=== PATIENT | male | born 1955 | race Caucasian/White ===

== ENCOUNTER 2017-02-22 19:51 | Emergency (ER) | payer OTHER ==
[2017-02-22 20:54] LABS: VENOUS O2 SATURATION 83.8 % (60.0-80.0); VENOUS PARTIAL PRESSURE CO2 38.8 mmHg (38.0-50.0); VENOUS TOTAL CO2 26.4 MEQ/L (24.0-28.0)
[2017-02-22 20:57] LABS: BASO % 0.2 % (0.0-1.0); EOS % 0.1 % (0.0-3.0); IMMATURE GRANULOCYTE # 0.1 10^3/uL (0-0); IMMATURE GRANULOCYTE % 0.5 % (0-0); LYMPH # 1.9 10^3/uL (1.5-4.5); LYMPH % 12.1 % (24.0-44.0); MEAN CORPUSCULAR HEMOGLOBIN 31.2 pg (27.0-33.0); MEAN CORPUSCULAR HGB CONC 34.9 g/dl (32.0-36.5); MEAN CORPUSCULAR VOLUME 89.2 fl (80.0-96.0); MONO # 1.6 10^3/uL (0.0-0.8); MONO % 10.2 % (0.0-5.0); NEUTROPHILS # 12.2 10^3/uL (1.8-7.7); NEUTROPHILS % 76.9 % (36.0-66.0); PLATELET COUNT, AUTOMATED 242 10^3/uL (150-450); RED CELL DISTRIBUTION WIDTH 12.8 % (11.5-14.5); WHITE BLOOD COUNT 15.8 10^3/uL (4.0-10.0)
[2017-02-22 21:02] LABS: INR 0.97
[2017-02-22 21:05] LABS: ALBUMIN 3.1 GM/DL (3.2-5.2); ALBUMIN/GLOBULIN RATIO 0.91 (1.00-1.93); ALKALINE PHOSPHATASE 125 U/L (45-117); ALT/SGPT 50 U/L (12-78); ANION GAP 11 MEQ/L (8-16); AST/SGOT 50 U/L (7-37); BILIRUBIN,DIRECT 0.2 MG/DL (0.0-0.2); BILIRUBIN,TOTAL 0.5 MG/DL (0.2-1.0); BLOOD UREA NITROGEN 25 MG/DL (7-18); CARBON DIOXIDE LEVEL 26 MEQ/L (21-32); CHLORIDE LEVEL 101 MEQ/L (98-107); CREATININE FOR GFR 1.11 MG/DL (0.70-1.30); GLOMERULAR FILTRATION RATE > 60.0 (>49); GLUCOSE, FASTING 130 MG/DL (80-110); POTASSIUM SERUM 3.4 MEQ/L (3.5-5.1); SODIUM LEVEL 138 MEQ/L (136-145); TOTAL PROTEIN 6.5 GM/DL (6.4-8.2)
[2017-02-22] MEDS: NS 1,000 ML IV (21:08)
[2017-02-22] MEDS: LABETALOL HCL 100 MG/20 ML VIAL IV (21:09)
[2017-02-22] MEDS ORDERED: ISOVUE-370 76% 100ML VIAL (Q9967) As Ordered (21:23)
[2017-02-22] MEDS: LABETALOL 100 MG TAB PO (22:45)
[2017-02-22] MEDS: HEPARIN SOD (PORCINE) 5000 UNITS/ML VIAL IV (22:46)
[2017-02-22] MEDS: HEPARIN DRIP 25,000 UNITS in APPROPRIATE DILUENT 1 EA IV ×2 (22:58→23:04)
== END 2017-02-23 00:12 | disposition short-term general hospital (02) ==
LOC: M ED 02-23 00:12
DX: I21.4 Non-ST elevation (NSTEMI) myocardial infarction (principal); J90 Pleural effusion, not elsewhere classified; R00.0 Tachycardia, unspecified; I45.2 Bifascicular block; I51.9 Heart disease, unspecified; I10 Essential (primary) hypertension; Z95.5 Presence of coronary angioplasty implant and graft; F17.200 Nicotine dependence, unspecified, uncomplicated; Z82.49 Family history of ischemic heart disease and other diseases of the circulatory system; Z79.82 Long term (current) use of aspirin; Z88.8 Allergy status to other drugs, medicaments and biological substances
CPT/HCPCS: Q9967

== ENCOUNTER 2018-07-15 02:23 | Emergency (ER) | payer OTHER, SELFPAY ==
[~2018-07-15 02:23] MED LIST: ASPI81TA51 PO; IBUP80TA PO; MAPA500T17 PO; OXYC1TAB23 PO; [UNRECOGNIZED DRUG - OTHER] PO
[2018-07-15 02:43] LABS: BASO # 0.1 10^3/uL (0.0-0.2); BASO % 0.8 % (0.0-1.0); EOS # 0.8 10^3/uL (0.0-0.50); EOS % 6.1 % (0.0-3.0); HEMATOCRIT 41.6 % (42.0-52.0); HEMOGLOBIN 13.9 g/dl (13.5-17.5); LYMPH # 2.1 10^3/uL (1.5-4.5); LYMPH % 16.2 % (24.0-44.0); MEAN CORPUSCULAR HGB CONC 33.4 g/dl (32.0-36.5); MEAN CORPUSCULAR VOLUME 95.9 fl (80.0-96.0); MONO # 1.2 10^3/uL (0.0-0.8); MONO % 8.9 % (0.0-5.0); NEUTROPHILS # 8.8 10^3/uL (1.8-7.7); NEUTROPHILS % 67.6 % (36.0-66.0); PLATELET COUNT, AUTOMATED 233 10^3/uL (150-450); RED BLOOD COUNT 4.34 10^6/uL (4.30-6.10)
[2018-07-15] MEDS: IPRATROPIUM 0.5MG/ALBUTEROL 2.5MG INH SOL UD 3ML (DUONEB)(J7620) NEB PRN ×3 (02:43→03:47)
[2018-07-15] MEDS ORDERED: methylPREDNISolone INJ 125 MG/2 ML VIAL (J2930) IV ONE (02:45)
[2018-07-15 03:10] LABS: BLOOD UREA NITROGEN 37 MG/DL (7-18); CALCIUM LEVEL 8.3 MG/DL (8.8-10.2); CARBON DIOXIDE LEVEL 28 MEQ/L (21-32); CHLORIDE LEVEL 112 MEQ/L (98-107); CPK CREATINE PHOSPHOKINASE 80 U/L (39-308); CREATININE FOR GFR 1.42 MG/DL (0.70-1.30); GLOMERULAR FILTRATION RATE 53.3 (>49); GLUCOSE, FASTING 101 MG/DL (70-100); MB/CK RELATIVE INDEX 1.75 (< OR =4); NT-PRO BNP 203 PG/ML (<125); SODIUM LEVEL 145 MEQ/L (136-145); TROPONIN I < 0.02 NG/ML (< 0.10)
[2018-07-15 03:15] LABS: ABG BASE EXCESS -1.8 (-2.0-2.0); ABG HCO3 23.2 MEQ/L (22.0-26.0); ABG O2 SATURATION 99.2 % (95.0-99.0); ABG PARTIAL PRESSURE CO2 40.4 mmHg (35.0-45.0); ABG PARTIAL PRESSURE O2 159.8 mmHg (75.0-100.0); ABG TOTAL CO2 24.4 MEQ/L (23.0-31.0); ABG pH (ARTERIAL) 7.377 UNITS (7.350-7.450)
[2018-07-15 04:00] VITALS: BP 126/75
[2018-07-15 04:07] VITALS: O2SAT 92
[2018-07-15] MEDS ORDERED: ALBUTEROL 90 MCG/ACT 8GM HFA INHALER INH ONE ×2 (04:15)
[2018-07-15] MEDS ORDERED: PRED20TA PO ×2 (04:16→04:17)
--- NOTE | 2018-07-15 08:58 | REP ---
REASON: Cough and dyspnea. COMPARISON: 03/25/2016. The technique utilized in obtaining the radiograph has magnified the cardiac silhouette and accentuated the interstitial markings. The lung ru[place] are hyperexpanded. Abnormal patchy and curvilinear opacities seen on the prior exam with bilateral pleural effusions have all resolved. Stable chronic biapical pleuroparenchymal scarring is again noted. No acute patchy parenchymal opacities or pleural effusions have developed. The heart is not enlarged. The osseous structures are stable and intact. IMPRESSION: No evidence of acute cardiopulmonary disease. Electronically Signed by Gene Bajwa DO 07/15/2018 10:28 A
--- NOTE | 2018-07-15 17:53 | ECGEPIP ---
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
== END 2018-07-15 04:42 | disposition home or self-care (01) ==
LOC: M ED 02:23
DX: R06.00 Dyspnea, unspecified (principal); R00.0 Tachycardia, unspecified; I11.0 Hypertensive heart disease with heart failure; I50.9 Heart failure, unspecified; I25.10 Atherosclerotic heart disease of native coronary artery without angina pectoris; Z87.891 Personal history of nicotine dependence; Z88.4 Allergy status to anesthetic agent; Z79.82 Long term (current) use of aspirin
CPT/HCPCS: 36600; 71045; 80048; 82550; 82553; 82803; 83605; 83880; 84484; 85025; 87040; 93005; 93041; 94640; 96374; 99285; J2930

== ENCOUNTER 2020-06-11 00:10 | Observation (INO) | payer OTHER ==
[~2020-06-11] VITALS: Ht 175.3 cm; Wt 51.5 kg
[~2020-06-11 00:10] MED LIST changes: +PRED20TA PO
[2020-06-11] MEDS: COMBIVENT RESPIMAT 100-20MCG INHALER 4GM INH SCH ×3 (00:32→01:13)
[2020-06-11 00:51] LABS: BASO # 0.1 10^3/uL (0.0-0.2); BASO % 0.6 % (0.0-1.0); EOS # 0.5 10^3/uL (0.0-0.5); EOS % 3.1 % (0.0-3.0); HEMATOCRIT 41.6 % (42.0-52.0); HEMOGLOBIN 13.2 g/dl (13.5-17.5); LYMPH # 2.2 10^3/uL (1.5-5.0); LYMPH % 13.7 % (24.0-44.0); MEAN CORPUSCULAR HEMOGLOBIN 29.4 pg (27.0-33.0); MEAN CORPUSCULAR HGB CONC 31.7 g/dl (32.0-36.5); MEAN CORPUSCULAR VOLUME 92.7 fl (80.0-96.0); MONO # 1.4 10^3/uL (0.0-0.8); MONO % 8.8 % (2.0-8.0); NEUTROPHILS # 11.7 10^3/uL (1.5-8.5); NEUTROPHILS % 73.5 % (36.0-66.0); PLATELET COUNT, AUTOMATED 228 10^3/uL (150-450); RED BLOOD COUNT 4.49 10^6/uL (4.30-6.10); WHITE BLOOD COUNT 15.9 10^3/uL (4.0-10.0)
[2020-06-11 01:38] LABS: ALBUMIN 3.7 GM/DL (3.2-5.2); ALT/SGPT 17 U/L (12-78); BILIRUBIN,DIRECT < 0.1 MG/DL (0.0-0.2); BILIRUBIN,TOTAL 0.2 MG/DL (0.2-1.0); BLOOD UREA NITROGEN 46 MG/DL (7-18); CALCIUM LEVEL 9.3 MG/DL (8.8-10.2); CARBON DIOXIDE LEVEL 27 MEQ/L (21-32); CHLORIDE LEVEL 109 MEQ/L (98-107); CK-MB VALUE MASS 2.3 NG/ML (<3.6); CPK CREATINE PHOSPHOKINASE 138 U/L (39-308); CREATININE FOR GFR 1.48 MG/DL (0.70-1.30); GLOMERULAR FILTRATION RATE 50.5 (>49); GLUCOSE, FASTING 89 MG/DL (70-100); MB/CK RELATIVE INDEX 1.67 (< OR =4); NT-PRO BNP 530 PG/ML (<125); POTASSIUM SERUM 4.5 MEQ/L (3.5-5.1); SODIUM LEVEL 141 MEQ/L (136-145); TOTAL PROTEIN 7.4 GM/DL (6.4-8.2); TROPONIN I < 0.02 NG/ML (< 0.10)
--- NOTE | 2020-06-11 01:39 | REPVR ---
PROCEDURE INFORMATION: Exam: XR Chest Exam date and time: 06/11/2020 1:06 AM Age: 65 years old Clinical indication: Cough and dyspnea; Additional info: Dyspnea/cough TECHNIQUE: Imaging protocol: XR of the chest. Views: 1 view. COMPARISON: CR PORTABLE CHEST X-RAY 07/15/2018 2:44 AM FINDINGS: Lungs: Degree of lung inflation is increased. No evidence of pulmonary edema. No focal consolidation or parenchymal lung mass. Pleural spaces: No pleural effusion or pneumothorax. Heart/Mediastinum: Cardiac silhouette appears normal. No adenopathy or hilar mass. Bones/joints: Osseous structures show no concerning abnormality. IMPRESSION: Hyperinflated lungs suggesting possible COPD. No evidence of pneumonia, pulmonary edema or other concerning focal process Electronically signed by: Jared Starr On 06/11/2020 01:39:44 AM
[2020-06-11] MEDS ORDERED: ATOR1TAB21 PO (02:28)
[2020-06-11] MEDS ORDERED: D31000TA2 PO (02:28)
[2020-06-11] MEDS ORDERED: CLOP75TA2 PO (02:28)
[2020-06-11] MEDS ORDERED: STIO1AER INH (02:28)
[2020-06-11] MEDS ORDERED: METO1TAB33 PO (02:28)
[2020-06-11] MEDS ORDERED: ASPI-161 PO (02:28)
[2020-06-11] MEDS ORDERED: ALEN70TA82 PO (02:28)
[2020-06-11] MEDS ORDERED: FURO20TA2 PO (02:28)
[2020-06-11] MEDS ORDERED: MOM 30ML SUSPENSION UDC PO PRN (02:45)
[2020-06-11] MEDS ORDERED: MAALOX 30 ML SUSP *UDC PO PRN (02:45)
[2020-06-11] MEDS ORDERED: PROAAER10 INH (02:52)
[2020-06-11] MEDS ORDERED: SYNT75TA PO (02:53)
[2020-06-11] MEDS ORDERED: VALS1TAB67 PO (02:53)
[2020-06-11] MEDS ORDERED: BENZONATATE 100 MG CAP PO PRN (02:55)
[2020-06-11] MEDS ORDERED: NS 500 ML IV ONE (03:00)
[2020-06-11 03:08] LABS: VENOUS BASE EXCESS -0.6 (-2.0-2.0); VENOUS HCO3 27.8 MEQ/L (23.0-27.0); VENOUS O2 SATURATION 53.2 % (60.0-80.0); VENOUS PARTIAL PRESSURE CO2 61.3 mmHg (38.0-50.0); VENOUS PARTIAL PRESSURE O2 30.9 mmHg (30.0-50.0); VENOUS PH 7.274 UNITS (7.330-7.430); VENOUS STANDARD HCO3 22.9 MEQ/L; VENOUS TOTAL CO2 29.7 MEQ/L (24.0-28.0)
[2020-06-11] MEDS ORDERED: ALBUTEROL 90 MCG/ACT 8GM HFA INHALER INH PRN (03:20)
--- NOTE | 2020-06-11 03:24 | HPEPDOC ---
[facility] Medical History & Physical Date of Admission Jun 11, 2020 Date of Service: Jun 11, 2020 Other Provider Rocael Sandhu MD Attending Physician: ALEX OSEI MD History and Physical CHIEF COMPLAINT: [ SOB ] HISTORY OF PRESENT ILLNESS: [This is a 65 y/o male with a pmh of COPD, CHF, CAD s/p stent placement, renal stent placement, HTN who presents to the ED complaining of acute onset sob. Patient states that tonight before coming to the ED, he experienced a coughing fit in which he could not catch his breath at all and became dizzy and experienced chest tightness. Patient states that he received nebulizer treatments and steroid injections from EMS which helped his symptoms greatly. Patient states that he has been working in his yard the past two days digging out his septic system by hand. Patient believes this may be the cause of his cough and sob. Patient states that he is experiencing sputum with his cough but cannot describe it because he swallows it. Patient was initially worried he was having a CHF exacerbation but states he does not believe that is the cause of his symptoms at this time. Patient is present smoker. Patient denies fever, chills, chest pain, nausea, vomiting, syncope.] PAST MEDICAL HISTORY: 1. [See HPI PAST SURGICAL HISTORY: 1. [See HPI SOCIAL HISTORY: Marital status: []. Resides in: [Home with ] Tobacco use:[Current smoker] ETOH: [Denies] Illicit drug use: [Denies] ALLERGIES: Please see below. REVIEW OF SYSTEMS: CONSTITUTIONAL: [See HPI]. HEENT: [See HPI]. CARDIOVASCULAR: [See HPI]. RESPIRATORY: [See HPI]. GASTROINTESTINAL: [See HPI]. GENITOURINARY: [Denies dysuria]. SKIN: [Denies rash]. MUSCULOSKELETAL: [Denies acute joint pain]. NEUROLOGICAL: [Denies paresthesias]. ENDOCRINE: [Denies DM]. HEMATOLOGIC/LYMPHATIC: [Denies easy bruising]. HOME MEDICATIONS: Please see below. PHYSICAL EXAMINATION: VITAL SIGNS: See below GENERAL APPEARANCE: [This is a chronically ill appearing 65 year old male. He is seated in bed and frequently stops during exam to cough or catch his breath.]. HEENT: [No mass or lesion. EOMI. No scleral icterus. Nares patent. Oral mucosa dry without erythema]. CARDIOVASCULAR: [Tachy rate, normal rhythm. No murmurs, rubs, gallops]. LUNGS: [Diffuse wheezing]. ABDOMEN: [Soft, non-tender]. MUSCULOSKELETAL: [No joint deformity]. EXTREMITIES: [No peripheral edema appreciated. No clubbing, cyanosis. Pulses intact]. NEUROLOGICAL: [Speech clear. A+Ox3. No focal deficits]. PSYCHIATRIC: [Mood and affect appear appropriate]. LABORATORY DATA: See below. IMAGING: [Chest X-ray: FINDINGS: Lungs: Degree of lung inflation is increased. No evidence of pulmonary edema. No focal consolidation or parenchymal lung mass. Pleural spaces: No pleural effusion or pneumothorax. Heart/Mediastinum: Cardiac silhouette appears normal. No adenopathy or hilar mass. Bones/joints: Osseous structures show no concerning abnormality. IMPRESSION: Hyperinflated lungs suggesting possible COPD. No evidence of pneumonia, pulmonary edema or other concerning focal process ] MICROBIOLOGY: Please see below. ASSESSMENT: [This is a 65 year old male with a history of COPD, CHF, CAD and HTN who complains of increased sob and cough x2 days. 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 Patient has responded well this far to breathing treatments and steroids. Patient worried he was having chf exacerbation initially but not sta kam he does not believe that is the problem right now. Chest x-ray performed in the ED essentially negative for acute processes.]. . PLAN: 1. [Acute COPD Exacerbation - Likely onset by sudden increase of physical labor beyond what patient should be doing - Patient responded well to nebulizer and steroids given by ems - Will begin duonebs treatments as needed, oxygen via nasal canula titrated to >90% saturation, prednisone, tessalon perles - At this time, i do need feel abx are indicated as patient's clinical presentation does not indicate infection in my opinion - Will give small amount of IVF as patient appears dry on exam - continue at home levalbuterol - Will admit to med surg tele under observation 2. Leukocytosis - Likely inflammatory. Patient has negative chest x-ray, no fever, chills, gross change in sputum as far as he can tell. States he does not feel ill. Suspicion of infection is low at this point. 3. Tachycardia - Likely related to periods of impaired breathing due to prolonged coughing fits. heart rate seems to slow as patient sits and catches his breath. - Will monitor on tele overnight 4. CHF - BNP slightly elevated in ED at just over 500, however patient does not appear fluid overloaded, but rather dry - Will monitor bnp, clinical presentation - Continue valsartan, metoprolol, lasix 5. Nicotine use - patch ordered 6. CAD - continue plavix, asa 7. HTN - continue valsartan, metoprolol, lasix, as stated 8. DVT prophylaxis - heparin ordered]. Vital Signs Vital Signs Date Time Temp Pulse Resp B/P (MAP) Pulse Ox O2 Delivery O2 Flow Rate FiO2 06/11/20 00:42 Nasal Cannula 06/11/20 00:42 97.6 95 22 95 0.5 06/11/20 00:40 141/98 (112) Laboratory Data Labs 24H Laboratory Tests 2 06/11/20 00:37: Immature Granulocyte % (Auto) 0.3, Neutrophils (%) (Auto) 73.5H, Lymphocytes (%) (Auto) 13.7L, Monocytes (%) (Auto) 8.8H, Eosinophils (%) (Auto) 3.1H, Basophils (%) (Auto) 0.6, Neutrophils # (Auto) 11.7H, Lymphocytes # (Auto) 2.2, Monocytes # (Auto) 1.4H, Eosinophils # (Auto) 0.5, Basophils # (Auto) 0.1, Nucleated Red Blood Cells % (auto) 0.0, Blood Gas Bicarbonate Standard 22.9, Venous Blood pH 7.274L, Venous Blood Partial Pressure CO2 61.3H, Venous Blood Partial Pressure O2 30.9, Venous Blood Total Carbon Dioxide 29.7H, Venous Blood HCO3 27.8H, Venous Blood Oxygen Saturation 53.2L, Venous Blood Base Excess -0.6, Anion Gap 5L, Glomerular Filtration Rate 50.5, Lactic Acid Level 0.4, Calcium Level 9.3, Total Bilirubin 0.2, Direct Bilirubin < 0.1, Aspartate Amino Transf (AST/SGOT) 19, Alanine Aminotransferase (ALT/SGPT) 17, Alkaline Phosphatase 82, Total Creatine Kinase 138, Creatine Kinase MB 2.3, Creatine Kinase MB Relative Index 1.67, Troponin I < 0.02, FQ-Qwh-M-Type Natriuretic Peptide 530H, Total Protein 7.4, Albumin 3.7, Albumin/Globulin Ratio 1.0 06/11/20 00:43: POC pH (Misc Panel) 7.374, POC Base Excess (Misc Panel) -1.0, POC Saturated Percent O2 (Misc) 93L, POC pO2 (Misc Panel) 70.0L, POC pCO2 (Misc Panel) 40.9, POC HCO3 (Misc Panel) 23.9, POC Total CO2 (Misc Panel) 25.0 CBC/BMP Laboratory Tests 06/11/20 00:37 Microbiology Microbiology 06/11/20 Respiratory Virus Panel (PCR) ([facility]) - Final, Complete Home Medications Scheduled Alendronate Sodium (Alendronate Sodium) 70 Mg Tablet, 70 MG PO QWEEK SUNDAYS Aspirin (Aspirin EC) 81 Mg Tablet.dr, 81 MG PO DAILY Atorvastatin Calcium (Atorvastatin Calcium) 20 Mg Tablet, 10 MG PO DAILY Cholecalciferol (Vitamin D3) (Vitamin D3) 1,000 Unit Tablet, 1,000 UNITS PO DAILY Clopidogrel Bisulfate (Clopidogrel) 75 Mg Tablet, 75 MG PO DAILY Furosemide (Furosemide) 20 Mg Tablet, 20 MG PO DAILY Levothyroxine Sodium (Synthroid) 75 Mcg Tablet, 75 MCG PO DAILY Metoprolol Succinate (Metoprolol Succinate) 100 Mg Tab.er.24h, 50 MG PO DAILY Prednisone (Prednisone) 10 Mg Tablet, 10 MG PO TAPER Take 4 tabs daily x 3 days, then 3 tabs daily x 3 days, then 2 tabs daily x 3 days, then 1 tab daily x 3 days and stop Tiotropium Br/Olodaterol HCl (Stiolto Respimat Inhal [place]) 4 Gm Mist.inhal, 2 PUFFS INH DAILY Valsartan (Valsartan) 160 Mg Tablet, 160 MG PO DAILY Scheduled PRN Albuterol Sulfate (Proair Hfa) 8.5 Gm Hfa.aer.ad, 2 PUFF INH Q4H PRN for SHORTNESS OF BREATH Benzonatate (Benzonatate) 100 Mg Capsule, 100 MG PO TID PRN for COUGH Allergies Coded Allergies: procaine (Verified Allergy, Mild, 07/15/18) A-FIB/CHADSVASC A-FIB History Current/History of A-Fib/PAF?: No Attending Note Attending Note Time of service 230am Mr. 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 He will be admitted primarily for management of acute COPD. Rest per ANI Juarez's H&P SHERLEY JUAREZ Jun 11, 2020 03:24 ALEX OSEI MD Jun 11, 2020 03:53
[2020-06-11] MEDS ORDERED: methylPREDNISolone 125MG 2ML VIAL IV ONE (03:50)
[2020-06-11] MEDS ORDERED: LEVALBUTEROL 1.25 MG/0.5 ML CONCENTRATE NEB INH PRN (03:50)
[2020-06-11 04:20] VITALS: BP 125/84
[2020-06-11] MEDS: ACETAMINOPHEN TAB 650MG DOSE (2X325MG) PO PRN (04:37)
[2020-06-11] MEDS ORDERED: guaiFENesin 200 MG TAB PO PRN (04:50)
[2020-06-11 05:04] LABS: HEMATOCRIT 40.5 % (42.0-52.0); HEMOGLOBIN 13.2 g/dl (13.5-17.5); MEAN CORPUSCULAR HEMOGLOBIN 30.3 pg (27.0-33.0); MEAN CORPUSCULAR HGB CONC 32.6 g/dl (32.0-36.5); MEAN CORPUSCULAR VOLUME 93.1 fl (80.0-96.0); PLATELET COUNT, AUTOMATED 245 10^3/uL (150-450); RED BLOOD COUNT 4.35 10^6/uL (4.30-6.10); WHITE BLOOD COUNT 16.3 10^3/uL (4.0-10.0)
[2020-06-11] MEDS: LEVOTHYROXINE 75MCG TABLET (0.075MG) PO SCH (05:31)
[2020-06-11 05:35] LABS: CALCIUM LEVEL 8.9 MG/DL (8.8-10.2); CREATININE FOR GFR 1.43 MG/DL (0.70-1.30); GLOMERULAR FILTRATION RATE 52.5 (>49); MAGNESIUM LEVEL 2.2 MG/DL (1.8-2.4); POTASSIUM SERUM 4.8 MEQ/L (3.5-5.1)
[2020-06-11] MEDS ORDERED: HEPARIN SOD (PORCINE) 5000UNITS/ML 1ML VIAL/SYRINGE SQ SCH (06:00)
[2020-06-11] MEDS: IPRATROPIUM 0.5MG/ALBUTEROL 2.5MG INH SOL UD 3ML (DUONEB) NEB SCH ×3 (07:21→19:36)
--- NOTE | 2020-06-11 08:09 | ECGEPIP ---
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
[2020-06-11] MEDS: ENOXAPARIN 40MG/0.4ML SYRINGE (J1650 PER 10MG) SC SCH ×2 (09:00→09:15)
[2020-06-11] MEDS ORDERED: ADVAIR HFA 115/21MCG INHALER INH SCH (09:00)
[2020-06-11] MEDS: NICOTINE 21MG/24HR 1 EA TRANSDERMAL TD SCH (09:15)
[2020-06-11] MEDS: ASPIRIN 81MG ENTERIC TABLET PO SCH (09:16)
[2020-06-11] MEDS: VITAMIN D 1,000 INTERNATIONAL UNITS TABLET PO SCH (09:16)
[2020-06-11] MEDS: CLOPIDOGREL 75 MG TAB PO SCH (09:16)
[2020-06-11] MEDS: DOCUSATE SODIUM 100MG CAPSULE PO SCH ×2 (09:16→21:00)
[2020-06-11] MEDS: predniSONE 20 MG TAB PO SCH (09:16)
[2020-06-11] MEDS: FUROSEMIDE 20 MG TAB PO SCH (09:16)
[2020-06-11] MEDS: PANTOPRAZOLE 40MG TAB (PROTONIX) PO SCH (09:16)
[2020-06-11] MEDS: ATORVASTATIN 10 MG TAB PO SCH (09:16)
[2020-06-11 09:17] VITALS: BP 109/82
[2020-06-11 12:58] VITALS: BP 118/83
[2020-06-11 14:00] VITALS: BP 120/81
[2020-06-11] MEDS: METOPROLOL SUCC (TopROL XL) 100MG *XL* TAB PO SCH (14:32)
[2020-06-11] MEDS: VALSARTAN 80 MG TAB (DIOVAN) PO SCH (14:43)
[2020-06-11 22:00] VITALS: BP 126/79
[2020-06-12] MEDS: IPRATROPIUM 0.5MG/ALBUTEROL 2.5MG INH SOL UD 3ML (DUONEB) NEB SCH ×3 (01:21→13:34)
[2020-06-12] MEDS: ACETAMINOPHEN TAB 650MG DOSE (2X325MG) PO PRN (05:07)
[2020-06-12 06:00] VITALS: BP 111/60
[2020-06-12] MEDS: LEVOTHYROXINE 75MCG TABLET (0.075MG) PO SCH (06:04)
[2020-06-12 06:22] LABS: HEMATOCRIT 35.6 % (42.0-52.0); HEMOGLOBIN 11.7 g/dl (13.5-17.5); MEAN CORPUSCULAR HEMOGLOBIN 30.1 pg (27.0-33.0); MEAN CORPUSCULAR HGB CONC 32.9 g/dl (32.0-36.5); MEAN CORPUSCULAR VOLUME 91.5 fl (80.0-96.0); PLATELET COUNT, AUTOMATED 217 10^3/uL (150-450); RED BLOOD COUNT 3.89 10^6/uL (4.30-6.10); WHITE BLOOD COUNT 20.4 10^3/uL (4.0-10.0)
[2020-06-12 06:53] LABS: BLOOD UREA NITROGEN 45 MG/DL (7-18); CALCIUM LEVEL 8.7 MG/DL (8.8-10.2); CARBON DIOXIDE LEVEL 23 MEQ/L (21-32); CHLORIDE LEVEL 110 MEQ/L (98-107); GLOMERULAR FILTRATION RATE > 60.0 (>49); GLUCOSE, FASTING 96 MG/DL (70-100); MAGNESIUM LEVEL 2.2 MG/DL (1.8-2.4); SODIUM LEVEL 141 MEQ/L (136-145)
[2020-06-12 07:42] LABS: NT-PRO BNP 753 PG/ML (<125)
[2020-06-12] MEDS: NICOTINE 21MG/24HR 1 EA TRANSDERMAL TD SCH (09:12)
[2020-06-12 09:14] VITALS: BP 110/60
[2020-06-12] MEDS: VITAMIN D 1,000 INTERNATIONAL UNITS TABLET PO SCH (09:14)
[2020-06-12] MEDS: ASPIRIN 81MG ENTERIC TABLET PO SCH (09:14)
[2020-06-12] MEDS: VALSARTAN 80 MG TAB (DIOVAN) PO SCH (09:14)
[2020-06-12] MEDS: METOPROLOL SUCC (TopROL XL) 100MG *XL* TAB PO SCH (09:14)
[2020-06-12] MEDS: predniSONE 20 MG TAB PO SCH (09:15)
[2020-06-12] MEDS: PANTOPRAZOLE 40MG TAB (PROTONIX) PO SCH (09:15)
[2020-06-12] MEDS: CLOPIDOGREL 75 MG TAB PO SCH (09:15)
[2020-06-12] MEDS: DOCUSATE SODIUM 100MG CAPSULE PO SCH (09:15)
[2020-06-12] MEDS: ATORVASTATIN 10 MG TAB PO SCH (09:15)
[2020-06-12] MEDS: FUROSEMIDE 20 MG TAB PO SCH (09:17)
[2020-06-12] MEDS ORDERED: PILL CUTTER 1 EACH XX PRN (09:30)
[2020-06-12 09:35] VITALS: BP 110/61
--- NOTE | 2020-06-12 12:01 | DS.PDOC ---
Discharge Summary General Date of Admission Jun 11, 2020 at 00:11 Date of Discharge 06/12/20 Discharge Summary PROCEDURES PERFORMED DURING STAY: [None]. ADMITTING DIAGNOSES: Acute COPD exacerbation Leukocytosis Tachycardia CHF Nicotine use Hx of CAD HTN DISCHARGE DIAGNOSES: Acute COPD exacerbation Leukocytosis Tachycaardia CHF Nicotine use Hx of CAD HTN COMPLICATIONS/CHIEF COMPLAINT: CHF. HISTORY OF PRESENT ILLNESS: his is a 65 y/o white male with a pmh of COPD, CHF, CAD s/p stent placement, renal stent placement, HTN who presents to the ED complaining of acute onset sob. Patient states that tonight before coming to the ED, he experienced a coughing fit in which he could not catch his breath at all and became dizzy and experienced chest tightness. Patient states that he received nebulizer treatments and steroid injections from EMS which helped his symptoms greatly. Patient states that he has been working in his yard the past two days digging out his septic system by hand. Patient believes this may be the cause of his cough and sob. Patient states that he is experiencing sputum with his cough but cannot describe it because he swallows it. Patient was initially worried he was having a CHF exacerbation but states he does not believe that is the cause of his symptoms at this time. Patient is present smoker. Patient denies fever, chills, chest pain, nausea, vomiting, syncope. HOSPITAL COURSE: 1. Acute COPD Exacerbation - Likely onset by sudden increase of physical labor - Patient responded well to nebulizer and steroids given by EMS - recieved IV solumedrol in ER, followed by PO prednisone - patient is afebrile, and cough has improved, without sputum - leukocytosis of 20.4, is likely attributed to steroid administration - at this time, antibiotics are not indicated - will DC home with a prednisone taper, inhaelrs. CHF - BNP slightly elevated - clinically does not appear volume overloaded - per patient, had an echo performed 2 weeks ago at the [facility], reports no new con cerning findings - will request records for echo report - continue metorpolol, furosemide, valsartan - follow up with cardiology at [facility] system Nicotine use - patch ordered CAD - continue plavix, asa HTN - continue valsartan, metoprolol, lasix DISCHARGE MEDICATIONS: Please see below. ALLERGIES: Please see below. PHYSICAL EXAMINATION ON DISCHARGE: VITAL SIGNS: please see below General: NAD, comfortable HEENT: PERRLA, EOMI, sclerae clear Neck: supple, normal ROM, no JVD Respiratory: lungs CTAB, no wheeze, no rales, no crackles. fair air entry bilaterally CVS: RRR, normal S1, S2, no murmurs Abdo: soft, no masses, no hepatosplenomegaly, BS+, no rebound tenderness Extremities: no edema, pulses 2+ MSK: no joint deformities, normal ROM Neuro: no focal neuro deficits, moving all 4 extremities, CN2-12 intact. Strength 5/5 in all 4 extremities. No nystagmus. Psych: calm, cooperative, AAO x 3 LABORATORY DATA: Please see below. IMAGING: CXR (06/11/20): IMPRESSION: Hyperinflated lungs suggesting possible COPD. No evidence of pneumonia, pulmonary edema or other concerning focal process PROGNOSIS: good ACTIVITY: [As tolerated]. DIET: 2g diet DISCHARGE PLAN: DC home. To complete prednisone taper. C/w inhalers. Continue follow up with pulmnology and cardiology at the [place]. DISPOSITION: . DISCHARGE INSTRUCTIONS: . Please follow-up with your primary care doctor within 3-5 days . 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 Please taking medications as prescribed. . If you develop bleeding, chest pain, shortness of breath, seizures, nausea, fevers, or otherwise worsening of your symptoms, please call 911 or return to the nearest emergency room DISCHARGE CONDITION: Stable TIME SPENT ON DISCHARGE: 35 minutes Vital Signs/I&Os Vital Signs Date Time Temp Pulse Resp B/P (MAP) Pulse Ox O2 Delivery O2 Flow Rate FiO2 06/12/20 09:35 97.8 95 18 110/61 (77) 93 Room Air 06/11/20 00:42 0.5 I&O- Last 24 Hours up to 6 AM 06/12/20 06:00 Intake Total 1720 ml Output Total 1000 ml Balance 720 ml Laboratory Data Labs 24H Laboratory Tests 2 06/12/20 06:09: Nucleated Red Blood Cells % (auto) 0.0, Anion Gap 8, Glomerular Filtration Rate > 60.0, Calcium Level 8.7L, Magnesium Level 2.2, HR-Lng-P-Type Natriuretic Peptide 753H CBC/BMP Laboratory Tests 06/12/20 06:09 Microbiology Microbiology 06/11/20 Blood Culture - Preliminary, Resulted No growth after 24 hours . All specim... 06/11/20 Respiratory Virus Panel (PCR) ([facility]) - Final, Complete Discharge Medications Scheduled Alendronate Sodium (Alendronate Sodium) 70 Mg Tablet, 70 MG PO QWEEK, (Reported) SUNDAYS Aspirin (Aspirin EC) 81 Mg Tablet.dr, 81 MG PO DAILY, (Reported) Atorvastatin Calcium (Atorvastatin Calcium) 20 Mg Tablet, 10 MG PO DAILY, (Reported) Cholecalciferol (Vitamin D3) (Vitamin D3) 1,000 Unit Tablet, 1,000 UNITS PO DAILY, (Reported) Clopidogrel Bisulfate (Clopidogrel) 75 Mg Tablet, 75 MG PO DAILY, (Reported) Furosemide (Furosemide) 20 Mg Tablet, 20 MG PO DAILY, (Reported) Levothyroxine Sodium (Synthroid) 75 Mcg Tablet, 75 MCG PO DAILY, (Reported) Metoprolol Succinate (Metoprolol Succinate) 100 Mg Tab.er.24h, 50 MG PO DAILY, (Reported) Tiotropium Br/Olodaterol HCl (Stiolto Respimat Inhal [place]) 4 Gm Mist.inhal, 2 PUFFS INH DAILY, (Reported) Valsartan (Valsartan) 160 Mg Tablet, 160 MG PO DAILY, (Reported) Scheduled PRN Albuterol Sulfate (Proair Hfa) 8.5 Gm Hfa.aer.ad, 2 PUFF INH Q4H PRN for SHORTNESS OF BREATH, (Reported) Allergies Coded Allergies: procaine (Verified Allergy, Mild, 07/15/18) SIMON STONER MD Jun 12, 2020 12:01
[2020-06-12] MEDS ORDERED: ASPI-161 PO (12:08)
[2020-06-12] MEDS ORDERED: PROAAER10 INH (12:08)
[2020-06-12] MEDS ORDERED: BENZ-18 PO (12:08)
[2020-06-12] MEDS ORDERED: STIO1AER INH (12:08)
[2020-06-12] MEDS ORDERED: METO1TAB33 PO (12:08)
[2020-06-12] MEDS ORDERED: SYNT75TA PO (12:08)
[2020-06-12] MEDS ORDERED: CLOP75TA2 PO (12:08)
[2020-06-12] MEDS ORDERED: PRED10TA2 PO (12:08)
[2020-06-12] MEDS ORDERED: VALS1TAB67 PO (12:08)
[2020-06-12 14:00] VITALS: BP 112/62
[2020-06-13] MEDS ORDERED: METOPROLOL SUCC (TopROL XL) 50MG **XL** TAB PO SCH (09:00)
== END 2020-06-12 14:07 | disposition home or self-care (01) ==
LOC: M ED 00:10 → M ED INP 00:11 → ENRESERV 03:15 → M MSPAV 04:19
PROVIDERS: ADMIT Internal Medicine; ATTEND Family Medicine
DX: J44.1 Chronic obstructive pulmonary disease with (acute) exacerbation (principal); D72.829 Elevated white blood cell count, unspecified; R00.0 Tachycardia, unspecified; I50.9 Heart failure, unspecified; F17.218 Nicotine dependence, cigarettes, with other nicotine-induced disorders; I10 Essential (primary) hypertension; I25.10 Atherosclerotic heart disease of native coronary artery without angina pectoris; Z98.61 Coronary angioplasty status; Z79.82 Long term (current) use of aspirin; Z79.899 Other long term (current) drug therapy; Z88.8 Allergy status to other drugs, medicaments and biological substances
CPT/HCPCS: 36415; 36600; 71045; 80048; 80076; 82550; 82553; 82803; 83605; 83735; 83880; 84484; 85025; 85027; 87040; 87798; 93005; 93041; 94640; 96361; 96374; 96375; 99285; G0378; J2930

== ENCOUNTER 2020-07-19 23:12 | Emergency (ER) | payer OTHER ==
[~2020-07-19] VITALS: Ht 175.3 cm; Wt 51.4 kg
[~2020-07-19 23:12] MED LIST changes: +ALEN70TA82 PO; +ASPI-161 PO; +ATOR1TAB21 PO; +BENZ-18 PO; +CLOP75TA2 PO; +D31000TA2 PO; +FURO20TA2 PO; +METO1TAB33 PO; +PRED10TA2 PO; +PROAAER10 INH; +STIO1AER INH; +SYNT75TA PO; +VALS1TAB67 PO
--- NOTE | 2020-07-20 00:42 | REPVR ---
PROCEDURE INFORMATION: Exam: XR Chest Exam date and time: 07/19/2020 12:14 AM Age: 65 years old Clinical indication: Other: Dyspnea/cough TECHNIQUE: Imaging protocol: XR of the chest. Views: 1 view. COMPARISON: CR PORTABLE CHEST X-RAY 06/11/2020 12:55 AM FINDINGS: Lungs: There is interstitial density at the left lung base similar to 06/11/2020 but not seen on older examinations. This may be interstitial infiltrate or interstitial scarring. Pleural spaces: There is no evidence of pneumothorax or pleural effusion. Heart/Mediastinum: The heart is elongated and there is no evidence of enlargement. Bones/joints: Old healed right clavicular fracture IMPRESSION: Interstitial density at the left lung base which may be mild interstitial infiltrate or scarring. Electronically signed by: Jimbo Villarreal On 07/20/2020 00:41:46 AM
[2020-07-20 00:49] LABS: BASO # 0.1 10^3/uL (0.0-0.2); BASO % 0.5 % (0.0-1.0); EOS # 0.4 10^3/uL (0.0-0.5); EOS % 2.9 % (0.0-3.0); HEMATOCRIT 37.7 % (42.0-52.0); HEMOGLOBIN 12.3 g/dl (13.5-17.5); LYMPH # 2.2 10^3/uL (1.5-5.0); LYMPH % 15.2 % (24.0-44.0); MEAN CORPUSCULAR HEMOGLOBIN 30.7 pg (27.0-33.0); MEAN CORPUSCULAR HGB CONC 32.6 g/dl (32.0-36.5); MONO # 1.4 10^3/uL (0.0-0.8); MONO % 9.8 % (2.0-8.0); NEUTROPHILS # 10.2 10^3/uL (1.5-8.5); NEUTROPHILS % 71.2 % (36.0-66.0); PLATELET COUNT, AUTOMATED 235 10^3/uL (150-450); RED BLOOD COUNT 4.01 10^6/uL (4.30-6.10); WHITE BLOOD COUNT 14.3 10^3/uL (4.0-10.0)
[2020-07-20 01:15] LABS: ALBUMIN 3.3 GM/DL (3.2-5.2); ALT/SGPT 15 U/L (12-78); BILIRUBIN,DIRECT < 0.1 MG/DL (0.0-0.2); BILIRUBIN,TOTAL 0.3 MG/DL (0.2-1.0); BLOOD UREA NITROGEN 45 MG/DL (7-18); CALCIUM LEVEL 8.6 MG/DL (8.8-10.2); CARBON DIOXIDE LEVEL 26 MEQ/L (21-32); CHLORIDE LEVEL 115 MEQ/L (98-107); CK-MB VALUE MASS < 1.0 NG/ML (<3.6); CPK CREATINE PHOSPHOKINASE 65 U/L (39-308); CPK CREATINE PHOSPHOKINASE 66 U/L (39-308); CREATININE FOR GFR 1.34 MG/DL (0.70-1.30); GLOMERULAR FILTRATION RATE 56.6 (>49); GLUCOSE, FASTING 93 MG/DL (70-100); MB/CK RELATIVE INDEX 1.52 (< OR =4); MB/CK RELATIVE INDEX 1.54 (< OR =4); NT-PRO BNP 337 PG/ML (<125); POTASSIUM SERUM 4.9 MEQ/L (3.5-5.1); SODIUM LEVEL 143 MEQ/L (136-145); TOTAL PROTEIN 6.5 GM/DL (6.4-8.2); TROPONIN I < 0.02 NG/ML (< 0.10)
[2020-07-20 01:19] LABS: ABG BASE EXCESS -3.7 (-2.0-2.0); ABG HCO3 20.8 MEQ/L (22.0-26.0); ABG O2 SATURATION 97.4 % (95.0-99.0); ABG PARTIAL PRESSURE CO2 35.8 mmHg (35.0-45.0); ABG PARTIAL PRESSURE O2 101.7 mmHg (75.0-100.0); ABG STANDARD HCO3 21.4 MEQ/L (22.0-26.0); ABG TOTAL CO2 21.9 MEQ/L (23.0-31.0); ABG pH (ARTERIAL) 7.382 UNITS (7.350-7.450)
[2020-07-20] MEDS ORDERED: DOXYCYCLINE HYCLATE 100MG TABLET PO ONE (01:35)
[2020-07-20] MEDS ORDERED: cefTRIAXone SOD 1 GM in D5W MINI-BAG PLUS 50 ML IV ONE (01:35)
[2020-07-20] MEDS ORDERED: ALBUTEROL 90 MCG/ACT 8GM HFA INHALER INH ONE (01:40)
[2020-07-20] MEDS ORDERED: COMBAER6 INH (02:22)
[2020-07-20] MEDS ORDERED: PRED20TA PO (02:22)
[2020-07-20] MEDS ORDERED: DOXY100C37 PO (02:22)
[2020-07-20 03:03] VITALS: BP 102/70
--- NOTE | 2020-07-20 20:17 | ECGEPIP ---
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
== END 2020-07-20 03:06 | disposition home or self-care (01) ==
LOC: M ED 23:12
DX: J44.0 Chronic obstructive pulmonary disease with (acute) lower respiratory infection (principal); I10 Essential (primary) hypertension; R94.31 Abnormal electrocardiogram [ECG] [EKG]; R91.8 Other nonspecific abnormal finding of lung field; Z79.82 Long term (current) use of aspirin; Z79.899 Other long term (current) drug therapy
CPT/HCPCS: 36600; 71045; 80048; 80076; 82550; 82553; 82803; 83605; 83880; 84484; 85025; 93005; 93041; 94640; 94760; 96365; 99284; J0696

== ENCOUNTER 2020-09-08 02:36 | Emergency (ER) | payer OTHER, SELFPAY ==
[~2020-09-08] VITALS: Ht 175.3 cm; Wt 51.0 kg
[~2020-09-08 02:36] MED LIST changes: +COMBAER6 INH; +DOXY1CAP62 PO
[2020-09-08] MEDS ORDERED: dexameTHASONE 20MG/5ML VIAL (J1100 PER 1MG) IV ONE (03:00)
[2020-09-08 03:33] LABS: BASO # 0.1 10^3/uL (0.0-0.2); BASO % 0.6 % (0.0-1.0); EOS # 0.5 10^3/uL (0.0-0.5); EOS % 5.8 % (0.0-3.0); HEMATOCRIT 37.9 % (42.0-52.0); HEMOGLOBIN 12.3 g/dl (13.5-17.5); LYMPH # 1.5 10^3/uL (1.5-5.0); LYMPH % 17.1 % (24.0-44.0); MEAN CORPUSCULAR HEMOGLOBIN 30.4 pg (27.0-33.0); MEAN CORPUSCULAR HGB CONC 32.5 g/dl (32.0-36.5); MEAN CORPUSCULAR VOLUME 93.8 fl (80.0-96.0); MONO # 1.2 10^3/uL (0.0-0.8); MONO % 13.6 % (2.0-8.0); NEUTROPHILS # 5.6 10^3/uL (1.5-8.5); NEUTROPHILS % 62.5 % (36.0-66.0); PLATELET COUNT, AUTOMATED 164 10^3/uL (150-450); RED BLOOD COUNT 4.04 10^6/uL (4.30-6.10); WHITE BLOOD COUNT 8.9 10^3/uL (4.0-10.0)
[2020-09-08] MEDS: COMBIVENT RESPIMAT 100-20MCG INHALER 4GM INH SCH ×3 (03:44→04:31)
[2020-09-08 04:02] LABS: ALBUMIN 3.4 GM/DL (3.2-5.2); ALT/SGPT 18 U/L (12-78); BILIRUBIN,DIRECT < 0.1 MG/DL (0.0-0.2); BILIRUBIN,TOTAL 0.3 MG/DL (0.2-1.0); BLOOD UREA NITROGEN 32 MG/DL (7-18); CALCIUM LEVEL 8.8 MG/DL (8.8-10.2); CARBON DIOXIDE LEVEL 26 MEQ/L (21-32); CHLORIDE LEVEL 112 MEQ/L (98-107); CK-MB VALUE MASS < 1.0 NG/ML (<3.6); CPK CREATINE PHOSPHOKINASE 129 U/L (39-308); CREATININE FOR GFR 1.59 MG/DL (0.70-1.30); GLOMERULAR FILTRATION RATE 46.5 (>49); GLUCOSE, FASTING 94 MG/DL (70-100); MB/CK RELATIVE INDEX 0.78 (< OR =4); NT-PRO BNP 749 PG/ML (<125); POTASSIUM SERUM 4.8 MEQ/L (3.5-5.1); SODIUM LEVEL 145 MEQ/L (136-145); TOTAL PROTEIN 6.8 GM/DL (6.4-8.2); TROPONIN I < 0.02 NG/ML (< 0.10)
--- NOTE | 2020-09-08 04:57 | REPVR ---
PROCEDURE INFORMATION: Exam: XR Chest Exam date and time: 09/08/20 (3:17am) Age: 65 years old Clinical indication: Cough and dyspnea TECHNIQUE: Imaging protocol: Portable CXR Views: 1 view COMPARISON: Portable CXR of 07/19/20 FINDINGS: Lungs: COPD-type changes again noted. Pulmonary hyperinflation. Mildly prominent interstitial markings at each lung base (unchanged). No consolidation. Pleural spaces: Unremarkable. No pleural effusions. No pneumothorax. Heart/Mediastinum: Unremarkable. No cardiomegaly. Bones/joints: Unremarkable. IMPRESSION: No acute findings. COPD-type changes. Mildly prominent bibasilar interstitial markings again seen. In general, a similar appearance was noted 2 months ago. Electronically signed by: Regina Baxter On 09/08/2020 04:56:43 AM
[2020-09-08] MEDS ORDERED: PRED20TA PO (07:04)
[2020-09-08 07:26] VITALS: BP 116/68
--- NOTE | 2020-09-08 21:28 | ECGEPIP ---
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
== END 2020-09-08 07:27 | disposition home or self-care (01) ==
LOC: M ED 02:36
DX: J44.1 Chronic obstructive pulmonary disease with (acute) exacerbation (principal); B34.8 Other viral infections of unspecified site; I11.0 Hypertensive heart disease with heart failure; I50.9 Heart failure, unspecified; Z88.4 Allergy status to anesthetic agent; Z79.899 Other long term (current) drug therapy; Z79.82 Long term (current) use of aspirin; F17.210 Nicotine dependence, cigarettes, uncomplicated
CPT/HCPCS: 71045; 80048; 80076; 82550; 82553; 83605; 83880; 84484; 85025; 87040; 87798; 93005; 93041; 94640; 94760; 96374; 99285; J1100

== ENCOUNTER → 2023-06-20 | Outpatient (CLI) | payer OTHER ==
[~2023-06-20] MED LIST changes: -ASPI-161 PO; +ASPI-615 PO; -D31000TA2 PO; +DOXY-443 PO; -DOXY1CAP62 PO; +VITA100093 PO
== END ==
LOC: M RAD 12:28
PROVIDERS: ATTEND Internal Medicine Pulmonary Disease
DX: F17.218 Nicotine dependence, cigarettes, with other nicotine-induced disorders (principal)

== ENCOUNTER 2023-07-19 18:05 | Emergency (ER) | payer OTHER ==
[~2023-07-19] VITALS: Ht 175.3 cm; Wt 52.3 kg
[~2023-07-19 18:05] MED LIST changes: +DOXY-323 PO; -DOXY-443 PO
[2023-07-19] MEDS ORDERED: SYNT88TA2 PO (18:28)
[2023-07-19] MEDS ORDERED: STRI1AER2 INH (18:30)
[2023-07-19] MEDS ORDERED: STIO1AER INH (18:33)
[2023-07-19 22:00] VITALS: BP 103/59; TEMP 97.5; O2SAT 96
== END 2023-07-19 22:21 | disposition home or self-care (01) ==
LOC: M ED 18:05 → EDBD 18:05 → M ED 22:21
DX: M54.17 Radiculopathy, lumbosacral region (principal); I10 Essential (primary) hypertension; E78.5 Hyperlipidemia, unspecified; F17.200 Nicotine dependence, unspecified, uncomplicated; Z86.79 Personal history of other diseases of the circulatory system; Z88.4 Allergy status to anesthetic agent; Z79.02 Long term (current) use of antithrombotics/antiplatelets; Z79.52 Long term (current) use of systemic steroids; Z79.899 Other long term (current) drug therapy

== ENCOUNTER → 2023-10-24 | Outpatient (CLI) | payer OTHER ==
[~2023-10-24] MED LIST changes: +STRI1AER2 INH; +SYNT88TA2 PO
== END ==
LOC: M RAD 17:13
PROVIDERS: ATTEND Internal Medicine Pulmonary Disease
DX: R91.8 Other nonspecific abnormal finding of lung field (principal)

== ENCOUNTER 2023-11-17 17:51 | Emergency (ER) | payer OTHER ==
[~2023-11-17] VITALS: Ht 175.3 cm; Wt 50.1 kg
[~2023-11-17 17:51] MED LIST changes: +ATOR40TA75 PO; +LEVO1TAB40 PO
[2023-11-17 18:45] LABS: BASO # 0.1 10^3/uL (0.0-0.2); BASO % 0.5 % (0.0-1.0); EOS # 0.2 10^3/uL (0.0-0.5); EOS % 2.3 % (0.0-3.0); HEMATOCRIT 42.1 % (42.0-52.0); LYMPH # 1.6 10^3/uL (1.5-5.0); LYMPH % 15.2 % (24.0-44.0); MEAN CORPUSCULAR HEMOGLOBIN 30.7 pg (27.0-33.0); MEAN CORPUSCULAR HGB CONC 33.3 g/dl (32.0-36.5); MEAN CORPUSCULAR VOLUME 92.3 fl (80.0-96.0); MONO # 1.4 10^3/uL (0.0-0.8); MONO % 13.6 % (2.0-8.0); NEUTROPHILS # 6.9 10^3/uL (1.5-8.5); NEUTROPHILS % 67.5 % (36.0-66.0); PLATELET COUNT, AUTOMATED 191 10^3/uL (150-450); RED BLOOD COUNT 4.56 10^6/uL (4.30-6.10); WHITE BLOOD COUNT 10.3 10^3/uL (4.0-10.0)
[2023-11-17] MEDS: methylPREDNISolone 125MG 2ML VIAL IV ONE (18:48)
[2023-11-17 18:51] VITALS: TEMP 98.3
[2023-11-17 19:10] LABS: RSV AMPLIFICATION NEGATIVE (NEGATIVE)
[2023-11-17 19:10] LABS: ALBUMIN 3.9 G/DL (3.2-5.2); BILIRUBIN,DIRECT 0.2 MG/DL (<0.4); BILIRUBIN,TOTAL 0.5 MG/DL (0.3-1.2); CALCIUM LEVEL 8.8 MG/DL (8.3-10.6); CREATININE FOR GFR 1.47 MG/DL (0.70-1.30); GLOMERULAR FILTRATION RATE 50.4 (>42); POTASSIUM SERUM 4.4 MMOL/L (3.5-5.1); TOTAL PROTEIN 7.4 G/DL (5.7-8.2)
[2023-11-17] MEDS: ALBUTEROL SULFATE 2.5MG/0.5ML INH NEB SOLN NEB ONE (19:19)
[2023-11-17] MEDS: IPRATROPIUM 0.5MG/ALBUTEROL 2.5MG INH SOL UD 3ML (DUONEB) NEB ONE (19:19)
[2023-11-17 20:35] VITALS: O2SAT 91
[2023-11-17] MEDS ORDERED: PRED10TA2 PO (20:37)
[2023-11-17 21:00] VITALS: BP 119/59; O2SAT 92
== END 2023-11-17 21:19 | disposition home or self-care (01) ==
LOC: M ED 17:51
DX: J44.1 Chronic obstructive pulmonary disease with (acute) exacerbation (principal); C61 Malignant neoplasm of prostate; E78.5 Hyperlipidemia, unspecified; I10 Essential (primary) hypertension; F17.200 Nicotine dependence, unspecified, uncomplicated; Z88.4 Allergy status to anesthetic agent; Z86.79 Personal history of other diseases of the circulatory system; Z79.52 Long term (current) use of systemic steroids; Z79.899 Other long term (current) drug therapy
CPT/HCPCS: 71045; 80048; 80076; 85025; 87631; 93005; 93041; 94640; 94760; 96374; 99285; J2919

== ENCOUNTER → 2023-11-29 | Outpatient (CLI) | payer OTHER ==
[~2023-11-29] MED LIST changes: -DOXY-323 PO; +DOXY-441 PO
== END ==
LOC: M IRPRO 11:57
PROVIDERS: ATTEND Internal Medicine
DX: J90 Pleural effusion, not elsewhere classified (principal)

== ENCOUNTER → 2024-01-11 | Outpatient (CLI) | payer OTHER | LOC: M RAD 13:56 | PROVIDERS: ATTEND Internal Medicine Pulmonary Disease | DX: R91.8 Other nonspecific abnormal finding of lung field (principal) ==

== ENCOUNTER → 2024-02-08 | Outpatient (CLI) | payer MEDICARE, OTHER | LOC: M PLARAD 14:47 | PROVIDERS: ATTEND Internal Medicine Pulmonary Disease | DX: R91.8 Other nonspecific abnormal finding of lung field (principal) | CPT/HCPCS: 78815; A9552 ==

== ENCOUNTER → 2024-04-05 | Outpatient (CLI) | payer OTHER ==
[~2024-04-05] MED LIST changes: +SYNT100T PO
== END ==
LOC: M PLAIMG 09:59
PROVIDERS: ATTEND Internal Medicine Pulmonary Disease
DX: R91.8 Other nonspecific abnormal finding of lung field (principal)

== ENCOUNTER 2024-04-18 06:08 | Day surgery (SDC) | payer OTHER ==
[2024-03-28] MEDS: CETACAINE SPRAY 5GM As Ordered ONE (07:19)
[2024-03-28] MEDS: EPINEPHrine 1MG/10ML SYRINGE 1.5IN As Ordered ONE (08:15)
[~2024-04-18] VITALS: Ht 175.3 cm; Wt 50.8 kg
[~2024-04-18 06:08] MED LIST changes: +LIDOCAINE 2% 100MG/5ML SDV (FOR ANES.) As Ordered ONE; +ROCURONIUM BROMIDE 50MG/5ML VIAL As Ordered ONE; +propofoL 200 MG/20 ML VIAL As Ordered ONE
[2024-04-18] MEDS ORDERED: SUGAMMADEX SODIUM 500 MG/5 ML VIAL (BRIDION) As Ordered ONE (06:13)
[2024-04-18] MEDS ORDERED: GLYCOPYRROLATE INJ 0.2 MG/ML 2 ML VIAL As Ordered ONE (06:14)
[2024-04-18] MEDS ORDERED: ONDANSETRON 4MG 2ML VIAL As Ordered ONE (06:14)
[2024-04-18] MEDS ORDERED: fentaNYL 100 MCG/2 ML INJECTION As Ordered ONE (06:19)
[2024-04-18] MEDS ORDERED: PHENYLephrine 500MCG 5ML (100MCG/ML) SYRINGE As Ordered ONE (08:10)
[2024-04-18] MEDS: THROMBIN 5,000 UNITS VIAL As Ordered ONE (08:15)
[2024-04-18] MEDS ORDERED: LR 1,000 ML IV SCH (09:00)
[2024-04-18] MEDS ORDERED: ONDANSETRON 4MG 2ML VIAL IV PRN (09:00)
[2024-04-18] MEDS ORDERED: fentaNYL 100 MCG/2 ML INJECTION IV PRN (09:00)
[2024-04-18 10:20] VITALS: BP 115/65; TEMP 97.1; O2SAT 96
== END 2024-04-18 11:30 | disposition home or self-care (01) ==
LOC: M SDC 06:08
PROVIDERS: ATTEND Internal Medicine Pulmonary Disease
DX: R91.8 Other nonspecific abnormal finding of lung field (principal); J44.9 Chronic obstructive pulmonary disease, unspecified; F17.218 Nicotine dependence, cigarettes, with other nicotine-induced disorders; Z79.51 Long term (current) use of inhaled steroids; Z79.899 Other long term (current) drug therapy; I10 Essential (primary) hypertension; E03.9 Hypothyroidism, unspecified; E78.5 Hyperlipidemia, unspecified; I73.9 Peripheral vascular disease, unspecified; M81.0 Age-related osteoporosis without current pathological fracture; Z85.47 Personal history of malignant neoplasm of testis
CPT/HCPCS: 31624; 31627; 31628; 31629; 31654; 71045; 76000; 87070; 87077; 87102; 87116; 87184; 87205; 87206; 88108; 88173; 88305; 88313; C1601; J0171; J1100; J1596; J2371; J2405; J3010; S2900

== ENCOUNTER 2024-07-07 20:02 | Inpatient (IN) | payer OTHER ==
[~2024-07-07] VITALS: Ht 175.3 cm; Wt 52.0 kg
[~2024-07-07 20:02] MED LIST changes: -LIDOCAINE 2% 100MG/5ML SDV (FOR ANES.) As Ordered ONE; -ROCURONIUM BROMIDE 50MG/5ML VIAL As Ordered ONE; -propofoL 200 MG/20 ML VIAL As Ordered ONE
[2024-07-07 21:03] LABS: VENOUS BASE EXCESS -1.2 (-2.0-2.0); VENOUS HCO3 24.1 MMOL/L (23.0-27.0); VENOUS O2 SATURATION 81.7 % (60.0-80.0); VENOUS PARTIAL PRESSURE CO2 42.2 mmHg (38.0-50.0); VENOUS PARTIAL PRESSURE O2 46.9 mmHg (30.0-50.0); VENOUS PH 7.374 UNITS (7.330-7.430); VENOUS STANDARD HCO3 23.2 MMOL/L; VENOUS TOTAL CO2 25.4 MMOL/L (24.0-28.0)
[2024-07-07 21:08] LABS: BASO # 0.1 10^3/uL (0.0-0.2); BASO % 0.5 % (0.0-1.0); EOS # 0.3 10^3/uL (0.0-0.5); EOS % 3.1 % (0.0-3.0); HEMOGLOBIN 12.4 g/dl (13.5-17.5); LYMPH # 0.9 10^3/uL (1.5-5.0); LYMPH % 7.7 % (24.0-44.0); MEAN CORPUSCULAR HEMOGLOBIN 30.5 pg (27.0-33.0); MEAN CORPUSCULAR HGB CONC 33.5 g/dl (32.0-36.5); MEAN CORPUSCULAR VOLUME 90.9 fl (80.0-96.0); MONO # 1.1 10^3/uL (0.0-0.8); MONO % 9.6 % (2.0-8.0); NEUTROPHILS # 8.7 10^3/uL (1.5-8.5); NEUTROPHILS % 78.6 % (36.0-66.0); PLATELET COUNT, AUTOMATED 222 10^3/uL (150-450); RED BLOOD COUNT 4.07 10^6/uL (4.30-6.10); WHITE BLOOD COUNT 11.1 10^3/uL (4.0-10.0)
[2024-07-07 21:33] LABS: ALBUMIN 3.7 G/DL (3.2-5.2); BILIRUBIN,DIRECT 0.2 MG/DL (<0.4); BILIRUBIN,TOTAL 0.5 MG/DL (0.3-1.2); CALCIUM LEVEL 9.1 MG/DL (8.3-10.6); CREATININE FOR GFR 1.33 MG/DL (0.70-1.30); GLOMERULAR FILTRATION RATE 57.2 (>42); POTASSIUM SERUM 4.8 MMOL/L (3.5-5.1); TOTAL PROTEIN 7.5 G/DL (5.7-8.2)
[2024-07-07] MEDS ORDERED: ISOVUE-370 76% 100ML VIAL As Ordered ONE (22:22)
[2024-07-07] MEDS: dexAMETHasone 20MG/5ML VIAL IV ONE (22:45)
[2024-07-07] MEDS: IPRATROPIUM 0.5MG/ALBUTEROL 2.5MG INH SOL UD 3ML NEB ONE (22:45)
[2024-07-07] MEDS: ACETAMINOPHEN 325 MG TAB PO ONE (22:45)
[2024-07-07 23:00] LABS: PROCALCITONIN 0.1 ng/ml
[2024-07-08] VITALS (9 sets, daily range): BP systolic 105–152; BP diastolic 56–72; TEMP 97.6–100.4; O2SAT 95–99
[2024-07-08] MEDS ORDERED: ACETAMINOPHEN 325 MG TAB PO PRN
[2024-07-08] MEDS: cefTRIAXone SOD 2 GM in DEXTROSE 5% (D5W) ADV/MINI-BAG 50 ML IV ONE (00:08)
[2024-07-08] MEDS ORDERED: LEVO125T4 PO (00:22)
[2024-07-08] MEDS ORDERED: VENTAER INH (00:29)
[2024-07-08] MEDS ORDERED: MOME13HF4 IN (00:29)
[2024-07-08] MEDS ORDERED: GABA-1172 PO (00:29)
[2024-07-08] MEDS ORDERED: D 101000 PO (00:29)
[2024-07-08] MEDS ORDERED: TIZA2CAP PO (00:29)
[2024-07-08] MEDS ORDERED: HOME MED LIST COMPLETE! XX SCH (00:35)
[2024-07-08] MEDS ORDERED: tiZANidine 4 MG TAB PO PRN (01:20)
[2024-07-08] MEDS ORDERED: GABAPENTIN 300 MG CAP PO PRN (01:20)
[2024-07-08] MEDS: NS (Normal Saline) 0.9% 1,000 ML IV SCH (02:11)
[2024-07-08] MEDS: REMDESIVIR 200 MG in NS 250 ML IV ONE (02:18)
[2024-07-08] MEDS: IPRATROPIUM 0.5MG/ALBUTEROL 2.5MG INH SOL UD 3ML NEB SCH (02:29)
[2024-07-08] MEDS ORDERED: PILL CUTTER 1 EACH XX PRN (05:05)
[2024-07-08] MEDS: LEVOTHYROXINE 125MCG TABLET (0.125MG) PO SCH (05:49)
[2024-07-08 07:21] LABS: PERCENT SATURATION 10.4 % (19.7-50.0)
[2024-07-08 07:23] LABS: FERRITIN 27.2 NG/ML (10.5-307.3); FOLATE 13.68 NG/ML (>5.4)
[2024-07-08] MEDS: SYMBICORT 80/4.5MCG INHALER 6GM INH SCH (07:34)
[2024-07-08] MEDS: TIOTROPIUM BROM 2.5MCG/ACTUATION 4GM INH INH SCH (07:34)
[2024-07-08] MEDS: ATORVASTATIN 20 MG TAB PO SCH (08:58)
[2024-07-08] MEDS: VALSARTAN 80 MG TAB (DIOVAN) PO SCH (08:58)
[2024-07-08] MEDS: DOXYCYCLINE HYCLATE 100MG TABLET PO SCH (08:58)
[2024-07-08] MEDS: guaiFENesin ER TABLET 600 MG TAB PO SCH (08:58)
[2024-07-08] MEDS: FUROSEMIDE 20 MG TAB PO SCH (08:59)
[2024-07-08] MEDS: METOPROLOL SUCC (TopROL XL) 50MG **XL** TAB PO SCH (09:00)
[2024-07-08] MEDS: CLOPIDOGREL 75 MG TAB PO SCH (09:00)
[2024-07-08] MEDS: methylPREDNISolone 40MG 1ML VIAL IV SCH (09:00)
[2024-07-08] MEDS: cefTRIAXone SOD 2 GM in DEXTROSE 5% (D5W) ADV/MINI-BAG 50 ML IV SCH (21:54)
[2024-07-09] MEDS: REMDESIVIR 100 MG in NS 100 ML IV SCH (00:42)
[2024-07-09 03:20] VITALS: BP 135/68; TEMP 98.1; O2SAT 96
[2024-07-09 04:57] LABS: HEMATOCRIT 32.7 % (42.0-52.0); MEAN CORPUSCULAR HEMOGLOBIN 30.3 pg (27.0-33.0); MEAN CORPUSCULAR HGB CONC 33.6 g/dl (32.0-36.5); MEAN CORPUSCULAR VOLUME 90.1 fl (80.0-96.0); PLATELET COUNT, AUTOMATED 203 10^3/uL (150-450); RED BLOOD COUNT 3.63 10^6/uL (4.30-6.10)
[2024-07-09 05:22] LABS: CALCIUM LEVEL 8.1 MG/DL (8.3-10.6); CREATININE FOR GFR 1.14 MG/DL (0.70-1.30); GLOMERULAR FILTRATION RATE 68.8 (>42); POTASSIUM SERUM 4.4 MMOL/L (3.5-5.1)
[2024-07-09 08:06] VITALS: BP 127/73; TEMP 98.1; O2SAT 92
[2024-07-09] MEDS ORDERED: IPRATROPIUM 0.5MG/ALBUTEROL 2.5MG INH SOL UD 3ML NEB PRN (10:10)
[2024-07-09 12:00] VITALS: BP 122/60; TEMP 98.9; O2SAT 94
[2024-07-09 16:52] VITALS: BP 129/68; TEMP 98.1; O2SAT 95
[2024-07-09 17:07] VITALS: BP 128/80; TEMP 98.4; O2SAT 96
[2024-07-09 20:00] VITALS: BP 131/66; TEMP 98.2; O2SAT 95
[2024-07-09] MEDS: CEFDINIR 300 MG CAP (OMNICEF) PO SCH (20:24)
[2024-07-10 00:31] VITALS: BP 143/78; TEMP 99.1; O2SAT 94
[2024-07-10 04:04] VITALS: BP 146/80; TEMP 98.1; O2SAT 94
[2024-07-10 08:10] VITALS: BP 115/69
[2024-07-10] MEDS ORDERED: CEFD300CAP PO (08:37)
[2024-07-10] MEDS ORDERED: DOXY100T PO (08:37)
[2024-07-10] MEDS ORDERED: PRED20TA PO (23:49)
== END 2024-07-10 12:55 | disposition home or self-care (01) | DRG 871 ==
LOC: M ED 20:02 → M ED INP 23:58 → M PCU 07-08 01:36 → M MSPAV 07-09 17:00
PROVIDERS: ADMIT Student in an Organized Health Care Education/Training Program; ATTEND Student in an Organized Health Care Education/Training Program
DX: A41.9 Sepsis, unspecified organism (principal); J12.82 Pneumonia due to coronavirus disease 2019; U07.1 COVID-19; J15.9 Unspecified bacterial pneumonia; J44.1 Chronic obstructive pulmonary disease with (acute) exacerbation; I13.0 Hypertensive heart and chronic kidney disease with heart failure and stage 1 through stage 4 chronic kidney disease, or unspecified chronic kidney disease; J44.0 Chronic obstructive pulmonary disease with (acute) lower respiratory infection; I50.9 Heart failure, unspecified; N18.9 Chronic kidney disease, unspecified; D64.9 Anemia, unspecified; E78.5 Hyperlipidemia, unspecified; I25.10 Atherosclerotic heart disease of native coronary artery without angina pectoris; Z95.2 Presence of prosthetic heart valve; E03.9 Hypothyroidism, unspecified; G89.29 Other chronic pain; M81.0 Age-related osteoporosis without current pathological fracture; Z87.891 Personal history of nicotine dependence; Z79.899 Other long term (current) drug therapy; Z79.890 Hormone replacement therapy

== ENCOUNTER → 2024-10-11 | Outpatient (CLI) | payer OTHER ==
[~2024-10-11] MED LIST changes: +CEFD300CAP PO; +D 101000 PO; +DOXY100T PO; +GABA-1172 PO; +LEVO125T4 PO; +MOME13HF4 IN; +TIZA2CAP PO; +VENTAER INH
== END ==
LOC: M RAD 09:50
PROVIDERS: ATTEND Psychiatry & Neurology Neurology
DX: I73.9 Peripheral vascular disease, unspecified (principal); R20.2 Paresthesia of skin; M79.604 Pain in right leg; M79.605 Pain in left leg

== ENCOUNTER → 2024-10-17 | Outpatient (CLI) | payer OTHER ==
[~2024-10-17] MED LIST changes: +ISOVUE-370 76% 100 ML VIAL As Ordered ONE
[2024-10-17 12:11] LABS: CREATININE FOR GFR 1.17 MG/DL (0.70-1.30); GLOMERULAR FILTRATION RATE 66.7 (>42)
[2024-10-17 12:28] LABS: ESTIMATED AVERAGE GLUCOSE 117.0 MG/DL (60-110)
[2024-10-17 12:41] LABS: CPK CREATINE PHOSPHOKINASE 58.0 U/L (46-171); VITAMIN B12 LEVEL 454.0 PG/ML (211-911)
[2024-10-18 10:07] LABS: T P ELECTROPHORESIS SO 7.7 g/dL (6.1-8.1)
[2024-10-19 09:03] LABS: ALBUMIN SPEP 4.3 g/dL (3.8-4.8); ALPHA-1-GLOBULINS SO 0.4 g/dL (0.2-0.3); ALPHA-2-GLOBULINS SO 0.8 g/dL (0.5-0.9); BETA 2 GLOBULIN 0.4 g/dL (0.2-0.5); BETA-GLOBULIN SO 0.5 g/dL (0.4-0.6); GAMMA GLOBULINS SO 1.4 g/dL (0.8-1.7)
[2024-10-21 15:02] LABS: VITAMIN E(ALPHA TOCOPHEROL) 7.9 mg/L (5.7-19.9); VITAMIN E(GAMMA TOCOPHEROL) < 1.0 mg/L (<=4.3)
[2024-10-22 18:13] LABS: VITAMIN B1 LEVEL WHOLE BLOOD 132 nmol/L (78-185)
== END ==
LOC: M RAD 10:32
PROVIDERS: ATTEND Psychiatry & Neurology Neurology
DX: I70.42 Atherosclerosis of autologous vein bypass graft(s) of the extremities with rest pain (principal); R53.1 Weakness; R20.2 Paresthesia of skin; I10 Essential (primary) hypertension; E11.40 Type 2 diabetes mellitus with diabetic neuropathy, unspecified; E53.8 Deficiency of other specified B group vitamins; E51.9 Thiamine deficiency, unspecified; E53.1 Pyridoxine deficiency; E56.0 Deficiency of vitamin E; Z95.820 Peripheral vascular angioplasty status with implants and grafts; E11.51 Type 2 diabetes mellitus with diabetic peripheral angiopathy without gangrene
CPT/HCPCS: 36415; 75635; 82550; 82565; 82607; 82746; 83036; 84155; 84165; 84207; 84425; 84446; 84520; Q9967

== ENCOUNTER → 2024-10-17 | Outpatient (CLI) | payer OTHER ==
[~2024-10-17] MED LIST changes: -ISOVUE-370 76% 100 ML VIAL As Ordered ONE
[2024-10-17 13:48] LABS: FREE T4 1.76 NG/DL (0.89-1.76)
== END ==
LOC: M LAB 10:35
PROVIDERS: ATTEND Nurse Practitioner Family
DX: E06.3 Autoimmune thyroiditis (principal)

== ENCOUNTER → 2025-01-11 | Outpatient (CLI) | payer OTHER | LOC: M PLAIMG 08:24 | PROVIDERS: ATTEND Registered Nurse | DX: R94.31 Abnormal electrocardiogram [ECG] [EKG] (principal); R06.02 Shortness of breath; I35.1 Nonrheumatic aortic (valve) insufficiency; I36.1 Nonrheumatic tricuspid (valve) insufficiency ==